=== PATIENT | female | born 1985 | race American Indian/Alaskan Native ===

== ENCOUNTER 2020-09-21 12:50 | Emergency (ER) | payer SELFPAY ==
--- NOTE | 2020-09-21 14:16 | Event Note ---
ED Screening Note Date of service: 09/21/20 Time: 14:15 ED Screening Note: 35-year-old female presents to the emergency room for headache and chest pain has been intermittent for the last 4 days. Patient states she took ibuprofen on Monday and states that it did help but headache is back and chest pain is back. Is located midsternal. Denies any vomiting no nausea. Denies any diarrhea or constipation. This initial assessment/diagnostic orders/clinical plan/treatment(s) is/are subject to change based on patients health status, clinical progression and re- assessment by fellow clinical providers in the ED. Further treatment and workup at subsequent clinical providers discretion. Patient/guardian urged not to elope from the ED as their condition may be serious if not clinically assessed and managed. Initial orders include:
[2020-09-21 15:01] LABS: Eosinophils # (Auto) 0.1 K/mm3 (0.0-0.4); Eosinophils % (Auto) 1.8 % (0.0-4.3); Monocytes # (Auto) 0.4 K/mm3 (0.0-0.8)
[2020-09-21 15:27] LABS: Basophils % (Auto) 0.9 % (0.0-1.8); Hematocrit 36.9 % (30.3-42.9); Hemoglobin 12.2 gm/dl (10.1-14.3); Lymphocytes # (Auto) 2.3 K/mm3 (1.2-5.4); Lymphocytes % (Auto) 37.6 % (13.4-35.0); Mean Corpuscular HGB Conc 33 % (30-34); Mean Corpuscular Volume 85 fl (79-97); Platelet Count 245 K/mm3 (140-440); Red Blood Count 4.33 M/mm3 (3.65-5.03); Red Cell Distribution Width 15.1 % (13.2-15.2)
[2020-09-21 15:31] LABS: Alanine Aminotransferase 10 units/L (7-56); Albumin 4.2 g/dL (3.9-5); Blood Urea Nitrogen 12 mg/dL (7-17); Calcium 9.5 mg/dL (8.4-10.2); Hemolysis Index 5
[2020-09-21 15:42] LABS: BUN/Creatinine Ratio 17
--- NOTE | 2020-09-21 16:12 | XRay Report ---
CHEST 2 VIEWS INDICATION / CLINICAL INFORMATION: Chest pain. COMPARISON: None available. FINDINGS: SUPPORT DEVICES: None. HEART / MEDIASTINUM: The heart size and pulmonary vasculature are normal. The aorta is normal in [place]. LUNGS / PLEURA: No significant pulmonary or pleural abnormality. No pneumothorax. ADDITIONAL FINDINGS: There is a right nipple piercing. IMPRESSION: No acute findings. Signer Name: Pipe Black MD Signed: 09/21/2020 4:07 PM Workstation Name: [id number]
[2020-09-21] MEDS ORDERED: IBUPROFEN 600 MG TAB PO ONE (17:39)
--- NOTE | 2020-09-21 18:15 | Emergency Department Report ---
ED General Adult HPI - General Chief complaint: Headache Stated complaint: HEADACHE/CHEST PAIN Source: patient Mode of arrival: Ambulatory Limitations: No Limitations - History of Present Illness Initial comments: Patient is a 35-year-old -Citizen Of [place] female with a history of asthma with very rare exacerbations who presents to the ED with complaint of acute onset persistent headache and anterior chest wall pain for the last 3 days after heavy lifting at work. Patient states that although she usually lifts heavy boxes at work, 3 days ago she performed excessively heavy work and lifted a lot of heavy boxes and thereafter developed anterior chest wall pain. Patient states that the pain is worse with palpation or any movement or cough. Patient also states that she has been taking [id number] ibuprofen which has helped resolve her headache but states that when the medication wears off, the headache and anterior chest wall pain resume. Patient denies shortness of breath, fever, chills, traumatic injury, dizziness, syncope, palpitations, nausea and vomiting, abdominal pain, back pain, numbness and tingling or weakness of upper and lower extremities bilaterally, neck pain, jaw pain, cough or sore throat. MD Complaint: headache; anterior chest wall pain -: Sudden, days(s) (3) Location: head, chest Radiation: non-radiation Severity scale (0 -10): 6 Quality: aching, sharp, constant Consistency: constant Improves with: none Worsens with: movement, other (palpation) Associated Symptoms: denies other symptoms, chest pain (anterior chest wall pain), headaches. denies: confusion, cough, diaphoresis, fever/chills, loss of appetite, malaise, nausea/vomiting, rash, seizure, shortness of breath, syncope, weakness Treatments Prior to Arrival: NSAID - Related Data Previous Rx's Medication Instructions Recorded Last Taken Type Baclofen 20 mg PO Q12H PRN #20 tablet 09/21/20 Unknown Rx Naproxen 500 mg PO Q12H PRN #30 tablet 09/21/20 Unknown Rx Allergies Allergy/AdvReac Type Severity Reaction Status Date / Time No Known Allergies Allergy Unverified 09/21/20 13:26 ED Review of Systems ROS: Stated complaint: HEADACHE/CHEST PAIN Other details as noted in HPI Constitutional: denies: chills, fever Eyes: denies: eye pain, eye discharge, vision change ENT: denies: ear pain, throat pain Respiratory: denies: cough, shortness of breath, wheezing Cardiovascular: chest pain (anterior chest wall pain). denies: palpitations Endocrine: no symptoms reported Gastrointestinal: denies: abdominal pain, nausea, diarrhea Genitourinary: denies: urgency, dysuria, discharge Musculoskeletal: denies: back pain, joint swelling, arthralgia Skin: denies: rash, lesions Neurological: headache. denies: weakness, paresthesias Psychiatric: denies: anxiety, depression Hematological/Lymphatic: denies: easy bleeding, easy bruising ED Past Medical Hx - Past Medical History Hx Asthma: Yes - Surgical History Additional Surgical History: CSECTION X 2 - Medications Home Medications: Home Medications Medication Instructions Recorded Confirmed Last Taken Type Baclofen 20 mg PO Q12H PRN #20 tablet 09/21/20 Unknown Rx Naproxen 500 mg PO Q12H PRN #30 tablet 09/21/20 Unknown Rx ED Physical Exam - General Limitations: No Limitations General appearance: alert, in no apparent distress - Head Head exam: Present: atraumatic, normocephalic, normal inspection - Eye Eye exam: Present: normal appearance, PERRL, EOMI Pupils: Present: normal accommodation - ENT ENT exam: Present: normal exam, normal orophraynx, mucous membranes moist, TM's normal bilaterally, normal external ear exam - Neck Neck exam: Present: normal inspection, full ROM - Respiratory Respiratory exam: Present: normal lung sounds bilaterally, chest wall tenderness (Palpable reproducible anterior chest wall tenderness). Absent: respiratory distress, wheezes, rales, rhonchi, accessory muscle use, decreased breath sounds, prolonged expiratory - Cardiovascular Cardiovascular Exam: Present: regular rate, normal rhythm, normal heart sounds. Absent: systolic murmur, diastolic murmur, rubs, gallop - GI/Abdominal GI/Abdominal exam: Present: soft, normal bowel sounds. Absent: tenderness, guarding, rebound, hyperactive bowel sounds, hypoactive bowel sounds, organomegaly - Extremities Exam Extremities exam: Present: normal inspection, full ROM, normal capillary refill - Back Exam Back exam: Present: normal inspection, full ROM. Absent: tenderness, CVA tenderness (R), CVA tenderness (L), muscle spasm, paraspinal tenderness - Neurological Exam Neurological exam: Present: alert, oriented X3, CN II-XII intact, normal gait, reflexes normal - Psychiatric Psychiatric exam: Present: normal affect, normal mood - Skin Skin exam: Present: warm, dry, intact, normal color. Absent: rash ED Course Vital Signs 09/21/20 13:28 Temperature 98.4 F Pulse Rate 67 Respiratory 18 Rate Blood Pressure 166/104 [Right] O2 Sat by Pulse 100 Oximetry ED Medical Decision Making - Lab Data Result diagrams: 09/21/20 14:40 09/21/20 14:40 - EKG Data EKG shows normal: sinus rhythm Rate: bradycardia - EKG Data Interpretation: normal EKG 09/21/20 18:27 EKG shows sinus bradycardia with a ventricular rate of 57 bpm, and no ST or T wave abnormalities. - Radiology Data Radiology results: report reviewed, image reviewed [facility] [address] [place] [address] XRay Report Signed Patient: ASAEL WHITNEY MR#: [id number] : 1985 Acct:[id number] Age/Sex: 35 / F ADM Date: 09/21/20 Loc: ED Attending Dr: Ordering Physician: ROCKY NAILS Date of Service: 09/21/20 Procedure(s): XR chest routine 2V Accession Number(s): [id number] cc: ROCKY NAILS Fluoro Time In Minutes: CHEST 2 VIEWS INDICATION / CLINICAL INFORMATION: Chest pain. COMPARISON: None available. FINDINGS: SUPPORT DEVICES: None. HEART / MEDIASTINUM: The heart size and pulmonary vasculature are normal. The aorta is normal in caliber. LUNGS / PLEURA: No significant pulmonary or pleural abnormality. No pneumothorax. ADDITIONAL FINDINGS: There is a right nipple piercing. IMPRESSION: No acute findings. Signer Name: Pipe Black MD Signed: 09/21/2020 4:07 PM Workstation Name: [id number] Transcribed By: RT Dictated By: Pipe lBack MD Electronically Authenticated By: Pipe Black MD Signed Date/Time: 09/21/201606 DD/ 06 TD/TT: Print Cancel - Medical Decision Making This is a 35-year-old -Citizen Of [place] female with a history of asthma with very rare exacerbations who presents to the ED with complaint of acute onset persistent headache and anterior chest wall pain for the last 3 days after heavy lifting at work. Patient states that although she usually lifts heavy boxes at work, 3 days ago she performed excessively heavy work and lifted a lot of heavy boxes and thereafter developed anterior chest wall pain. Patient states that the pain is worse with palpation or any movement or cough. Patient also states that she has been taking [id number]-[id number] ibuprofen which has helped resolve her headache but states that when the medication wears off, the headache and anterior chest wall pain resume. In the ED, patient is alert and oriented x3 and is not in distress. Chest x-ray shows no acute cardiopulmonary abnormalities or pneumonitis. Lab test results were reviewed and are all nonactionable. Patient's heart score is 0 and is PERC negative per Wells criteria. Patient was treated for pain in the ED with ibuprofen 600 mg p.o. x1 based on the physical exam findings of reproducible anterior chest wall tenderness. Therefore patient symptoms are unlikely to be cardiac related but musculoskeletal costochondritis or muscle strain from heavy lifting at work. Patient was therefore discharged home on pain medications and advised to follow- up with her primary care physician in 5 to 7 days for reevaluation or return to the ED immediately if her symptoms get worse. - Differential Diagnosis ACS; Costochondritis; Muscle strain; Pneumonia Critical care attestation.: If time is entered above; I have spent that time in minutes in the direct care of this critically ill patient, excluding procedure time. ED Disposition Clinical Impression: Acute costochondritis, Muscle strain of anterior chest wall Disposition: DC-01 TO HOME OR SELFCARE Is pt being admited?: No Does the pt Need Aspirin: No Condition: Stable Instructions: Costochondritis, [id number], Muscle Strain, [id number] Additional Instructions: All lab test results were reviewed and are all nonactionable. Chest x-ray shows no acute cardiopulmonary abnormalities or pneumonitis. Based on the history and physical exam findings, including imaging test results and lab test results, your symptoms are likely due to musculoskeletal strain following heavy lifting at work as attested by the fact that the pain is reproducible on physical exam. Therefore take medications with food, drink plenty of fluids and follow-up with your primary care physician in 5 to 7 days for reevaluation. Prescriptions: Baclofen 20 mg PO Q12H PRN #20 tablet PRN Reason: Muscle Spasm Naproxen 500 mg PO Q12H PRN #30 tablet PRN Reason: Pain , Severe (7-10) Referrals: SULTANA ADAMS MD [Staff Physician] - 7-10 days Forms: Work/School Release Form(ED) Time of Disposition: 18:13 Print Language: GUATEMAL[place]
[2020-09-21 18:52] VITALS: BP 151/95
== END 2020-09-21 18:52 | disposition home or self-care (01) ==
LOC: ED 12:50
DX: S29.011A Strain of muscle and tendon of front wall of thorax, initial encounter (principal); M94.0 Chondrocostal junction syndrome [Tietze]; J45.909 Unspecified asthma, uncomplicated; Z79.899 Other long term (current) drug therapy; Z98.890 Other specified postprocedural states; X50.0XXA Overexertion from strenuous movement or load, initial encounter; Y93.89 Activity, other specified; Y92.89 Other specified places as the place of occurrence of the external cause; Y99.0 Civilian activity done for income or pay
CPT/HCPCS: 36415; 71046; 80053; 84484; 84702; 85025; 93005